=== PATIENT | female | born 1995 | race Caucasian/White ===

== ENCOUNTER 2020-11-02 10:59 | Outpatient (REF) | payer OTHER, SELFPAY | END 2020-11-02 11:00 | disposition home or self-care (01) | LOC: HO.LAB 10:59 | PROVIDERS: Visit Provider Internal Medicine | DX: Z20.822 Contact with and (suspected) exposure to COVID-19 (principal) | CPT/HCPCS: 36415; C9803; U0003 ==

== ENCOUNTER 2024-08-27 14:47 | Emergency (ER) | payer OTHER, SELFPAY ==
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
[2024-08-27 15:24] VITALS: BP 133/80; PULSE 75; RESP 18; TEMP 36.9; O2SAT 100; BMI 32.3
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
[2024-08-27 19:08] VITALS: BP 110/86; PULSE 78; RESP 16; TEMP 36.6; O2SAT 98
== END 2024-08-27 19:12 | disposition home or self-care (01) ==
PROVIDERS: Emergency Provider Emergency Medicine Emergency Medical Services
DX: S39.012A Strain of muscle, fascia and tendon of lower back, initial encounter (principal); S43.402A Unspecified sprain of left shoulder joint, initial encounter; V43.62XA Car passenger injured in collision with other type car in traffic accident, initial encounter; Y93.89 Activity, other specified; Y92.410 Unspecified street and highway as the place of occurrence of the external cause; Y99.9 Unspecified external cause status
CPT/HCPCS: 73030; 99282; 99283